=== PATIENT | male | born 1995 ===

== ENCOUNTER 2023-03-20 09:20 | Emergency (ER) | payer SELFPAY ==
[~2023-03-20] VITALS: Ht 175.3 cm; Wt 74.7 kg
[2023-03-20] MEDS ORDERED: NEOSPORIN OINT 0.9 GM PKT TOP ONE (11:20)
[2023-03-20] MEDS ORDERED: LIDOCAINE W/EPINEPHRINE 1% 20ML VIAL SC ONE (11:20)
[2023-03-20] MEDS ORDERED: CEPH500C PO ×2 (12:04→12:06)
[2023-03-20] MEDS ORDERED: BACI28.417 TOP ×2 (12:04→12:06)
[2023-03-20] MEDS ORDERED: CEPHALEXIN 500 MG CAP PO ONE (12:05)
[2023-03-20 12:10] VITALS: BP 137/65; TEMP 97.5; O2SAT 98
== END 2023-03-20 12:10 | disposition home or self-care (01) ==
LOC: M ED 09:20
DX: S41.111A Laceration without foreign body of right upper arm, initial encounter (principal); Y28.0XXA Contact with sharp glass, undetermined intent, initial encounter; F10.10 Alcohol abuse, uncomplicated; F17.200 Nicotine dependence, unspecified, uncomplicated; Y92.009 Unspecified place in unspecified non-institutional (private) residence as the place of occurrence of the external cause; Z79.899 Other long term (current) drug therapy